=== PATIENT | female | born 1975 | race Caucasian/White ===

== ENCOUNTER 2021-09-07 10:58 | Emergency (ER) | payer MEDICAID ==
[~2021-09-07] VITALS: Ht 149.9 cm; Wt 62.1 kg
[2021-09-07 11:06] VITALS: BP 110/42
[2021-09-07] MEDS ORDERED: MECL-303 PO (12:57)
[2021-09-07 13:04] VITALS: BP 110/42
== END 2021-09-07 13:05 | disposition home or self-care (01) ==
LOC: MED 10:58
DX: R00.2 Palpitations (principal); R42 Dizziness and giddiness; R07.9 Chest pain, unspecified; Z98.890 Other specified postprocedural states
CPT/HCPCS: 81002; 81025; 93005; 99283

== ENCOUNTER 2022-01-24 07:23 | Emergency (ER) | payer MEDICAID ==
[~2022-01-24] VITALS: Ht 149.9 cm; Wt 64.4 kg
[~2022-01-24 07:23] MED LIST: MECL-303 PO
[2022-01-24 07:32] VITALS: BP 113/71
--- NOTE | 2022-01-24 07:56 | NUR ---
Dr. Mendez evaluating patient at bedside.
--- NOTE | 2022-01-24 08:15 | NUR ---
Obtained Flu and RICHARD specimens, walked to lab. Handed to CPT Laurie.
--- NOTE | 2022-01-24 08:17 | NUR ---
46 y/o female bib self with c/o chest pain that radiates to left shoulder and down left arm x yesterday. Patient also has runny nose, headache and sore throat x 3 days. Denies any fever, chills or SOB. Medical History: "slow heart" NKDA
--- NOTE | 2022-01-24 08:24 | NUR ---
X-Ray at bedside.
[2022-01-24 09:03] VITALS: BP 95/65
--- NOTE | 2022-01-24 09:03 | NUR ---
Patient discharged with v/s stable. Written and verbal after care instructions given. Patient verbalized understanding. Ambulatory with steady gait. All questions addressed prior to discharge. Advised to follow up with PMD.
--- NOTE | 2022-01-24 09:04 | NUR ---
Chart checked and completed. The patient's care was reviewed and supervised by Akilah Quiles RN.
== END 2022-01-24 09:03 | disposition home or self-care (01) ==
LOC: MED 07:23
DX: J10.1 Influenza due to other identified influenza virus with other respiratory manifestations (principal); M25.512 Pain in left shoulder; M62.830 Muscle spasm of back; Z20.822 Contact with and (suspected) exposure to COVID-19; Z98.890 Other specified postprocedural states; Z79.899 Other long term (current) drug therapy
CPT/HCPCS: 71045; 87426; 87804; 93005; 99285; Q0092